=== PATIENT | male | born 1955 | race Caucasian/White ===

== ENCOUNTER 2020-04-07 11:15 | Inpatient (IN) | payer MEDICAID ==
[~2020-04-07] VITALS: Ht 175.3 cm; Wt 130.3 kg
--- NOTE | 2020-04-07 12:10 | NUR ---
PATIENT TO ROOM, RN MADE AWARE
[2020-04-07] MEDS ORDERED: SODIUM CHLORIDE FLUSH 10ML SYR IVF ONE (13:00)
[2020-04-07] MEDS ORDERED: MECLIZINE CHEWABLE 25 MG TAB PO ONE (13:00)
--- NOTE | 2020-04-07 13:07 | NUR ---
PT WITH KNEE REPLACEMENT 03/05. WOKE THIS AM AND FELT THOUGH THE ROOM WAS SPINNING, HE HAD GLF. -LOC, DID NOT HIT HEAD OR SUSTAIN INJURY. PT DENIES CP, SOB.
[2020-04-07 13:16] LABS: BASOPHILS # (AUTO) 0.04 x10^3/uL (0-0.1); BASOPHILS % (AUTO) 1 % (0-1); EOSINOPHILS # (AUTO) 0.51 x10^3/uL (0-0.4); EOSINOPHILS % (AUTO) 8 % (1-7); LYMPHOCYTES # (AUTO) 2.12 x10^3/uL (1-3.4); LYMPHOCYTES % (AUTO) 31 % (22-44); MD NO; MEAN CORPUSCULAR HEMOGLOBIN 31.1 pg (27.5-34.5); MEAN CORPUSCULAR HGB CONC 32.4 g/dL (33.2-36.2); MEAN PLATELET VOLUME 6.4 fL (7.4-10.4); MONOCYTES # (AUTO) 0.42 x10^3/uL (0.2-0.8); MONOCYTES % (AUTO) 6 % (2-9); NEUTROPHILS # (AUTO) 3.71 x10^3/uL (1.8-6.8); NEUTROPHILS % (AUTO) 55 % (42-75); PLATELET COUNT 242 x10^3/uL (130-400); RED BLOOD COUNT 3.98 x10^6/uL (4.38-5.82); RED CELL DISTRIBUTION WIDTH 14.1 % (9.4-14.8)
[2020-04-07] MEDS ORDERED: MECLIZINE CHEWABLE 25 MG TAB ONE (13:17)
[2020-04-07 13:31] LABS: TROPONIN I < 0.015 ng/mL (0.000-0.045)
[2020-04-07] MEDS ORDERED: DIAZEPAM 5 MG/ML, 2ML IV ONE (14:30)
[2020-04-07] MEDS ORDERED: DIAZEPAM 5 MG/ML, 2ML ONE (14:39)
[2020-04-07 14:43] LABS: ANION GAP 7 mmol/L (5-15); CALCIUM 8.5 mg/dL (8.5-10.1); CHLORIDE 112 mmol/L (98-107)
--- NOTE | 2020-04-07 14:45 | NUR ---
PIV ESTABLISHED, PT MEDICATED PER MAR. VSS, NO OTHER NEEDS AT THIS TIME
--- NOTE | 2020-04-07 16:24 | NUR ---
PT AMBULATED TO WITH IN [place], PT DID REPORT STILL FEELING DIZZY DESPITE MED ADMINISTRATION. ERP MADE AWARE, VSS
[2020-04-07] MEDS ORDERED: SODIUM CHLORIDE FLUSH 10ML SYR IVF PRN (17:00)
--- NOTE | 2020-04-07 17:30 | NUR ---
PT PROVIDED WITH MEAL TRAY UPON REQUEST, VSS, NO OTHER NEEDS AT THIS TIME
[2020-04-07] MEDS ORDERED: TAMS-11 PO (19:07)
[2020-04-07] MEDS ORDERED: ATOR10TA9 PO (19:07)
--- NOTE | 2020-04-07 19:07 | NUR ---
Report received from MARILEE Garcia. This RN to assume care. Bed received for patient. Report given to MARILEE Martinez. Patient to be transferred to room 338.
[2020-04-07 19:25] VITALS: BP 155/85
[2020-04-07] MEDS ORDERED: ONDANSETRON 2MG/ML, 2ML IVPush PRN (19:30)
[2020-04-07] MEDS ORDERED: ONDANSETRON ODT 4 MG PO PRN (19:30)
[2020-04-07] MEDS ORDERED: LORazepam 1MG TABLET PO PRN (19:30)
[2020-04-07] MEDS ORDERED: ACETAMINOPHEN 325 MG TABLET PO PRN (19:30)
[2020-04-07] MEDS ORDERED: LORazepam 2 MG/ML, 1ML IVPush PRN (19:30)
[2020-04-07] MEDS ORDERED: NAPR-850 PO (19:31)
[2020-04-07] MEDS: MECLIZINE 25 MG TABLET PO SCH (20:59)
[2020-04-07] MEDS: ATORVASTATIN 20 MG TABLET PO SCH (20:59)
[2020-04-07] MEDS: ENOXAPARIN 40 MG/0.4 ML SQ SCH (21:01)
[2020-04-07] MEDS: LACTATED RINGERS 1,000 ML IV SCH (21:02)
[2020-04-08] VITALS (8 sets, daily range): BP systolic 130–165; BP diastolic 72–91
[2020-04-08 02:37] LABS: MICROSCOPIC NOT IND
[2020-04-08 06:01] LABS: BASOPHILS # (AUTO) 0.04 x10^3/uL (0-0.1); BASOPHILS % (AUTO) 1 % (0-1); EOSINOPHILS # (AUTO) 0.49 x10^3/uL (0-0.4); EOSINOPHILS % (AUTO) 9 % (1-7); LYMPHOCYTES # (AUTO) 2.22 x10^3/uL (1-3.4); LYMPHOCYTES % (AUTO) 38 % (22-44); MD NO; MEAN CORPUSCULAR HEMOGLOBIN 31.2 pg (27.5-34.5); MEAN CORPUSCULAR HGB CONC 32.2 g/dL (33.2-36.2); MEAN PLATELET VOLUME 6.9 fL (7.4-10.4); MONOCYTES # (AUTO) 0.44 x10^3/uL (0.2-0.8); MONOCYTES % (AUTO) 8 % (2-9); NEUTROPHILS # (AUTO) 2.64 x10^3/uL (1.8-6.8); NEUTROPHILS % (AUTO) 45 % (42-75); PLATELET COUNT 238 x10^3/uL (130-400); RED BLOOD COUNT 3.79 x10^6/uL (4.38-5.82); RED CELL DISTRIBUTION WIDTH 14.5 % (9.4-14.8)
[2020-04-08 06:15] LABS: ALANINE AMINOTRANSFERASE 27 U/L (12-78); ANION GAP 6 mmol/L (5-15); CALCIUM 8.9 mg/dL (8.5-10.1); CHLORIDE 111 mmol/L (98-107); CREATININE 0.74 mg/dL (0.7-1.3)
[2020-04-08 06:20] LABS: ALKALINE PHOSPHATASE 79 U/L (45-117); BILIRUBIN,TOTAL 0.9 mg/dL (0.2-1.0); CHOL/HDL RATIO 2.8; CHOLESTEROL, TOTAL 102 mg/dL (140-239); HDL CHOL % 36 % (26-37); HDL CHOLESTEROL (DIRECT) 37 mg/dL (40-60); LDL CHOLESTEROL,CALCULATED 42 mg/dL (54-169); LDL/HDL RATIO 1.1 (0.5-3.0); TRIGLYCERIDES 116 mg/dL (50-200); VLDL CHOLESTEROL 23 mg/dL (0-25)
[2020-04-08] MEDS ORDERED: GADOTERATE 10 MMOL/20 ML VIAL ONE (08:43)
[2020-04-08] MEDS: LACTATED RINGERS 1,000 ML IV SCH ×2 (08:50→21:12)
[2020-04-08] MEDS: ENOXAPARIN 40 MG/0.4 ML SQ SCH (09:00)
[2020-04-08] MEDS: TAMSULOSIN 0.4 MG CAP.ER.24H PO SCH (09:25)
[2020-04-08] MEDS: MECLIZINE 25 MG TABLET PO SCH ×3 (09:25→21:11)
[2020-04-08] MEDS: SENNA/DOCUSATE TABLET PO SCH (09:25)
[2020-04-08] MEDS: ATORVASTATIN 20 MG TABLET PO SCH (21:11)
[2020-04-09 00:26] VITALS: BP 125/63
[2020-04-09 05:25] LABS: BASOPHILS # (AUTO) 0.04 x10^3/uL (0-0.1); BASOPHILS % (AUTO) 1 % (0-1); EOSINOPHILS # (AUTO) 0.47 x10^3/uL (0-0.4); EOSINOPHILS % (AUTO) 7 % (1-7); LYMPHOCYTES # (AUTO) 2.58 x10^3/uL (1-3.4); LYMPHOCYTES % (AUTO) 38 % (22-44); MD NO; MEAN CORPUSCULAR HEMOGLOBIN 30.8 pg (27.5-34.5); MEAN CORPUSCULAR HGB CONC 32.3 g/dL (33.2-36.2); MEAN PLATELET VOLUME 6.9 fL (7.4-10.4); MONOCYTES # (AUTO) 0.56 x10^3/uL (0.2-0.8); MONOCYTES % (AUTO) 8 % (2-9); NEUTROPHILS % (AUTO) 47 % (42-75); PLATELET COUNT 263 x10^3/uL (130-400); RED BLOOD COUNT 3.91 x10^6/uL (4.38-5.82); RED CELL DISTRIBUTION WIDTH 14.5 % (9.4-14.8)
[2020-04-09 05:27] LABS: CHLORIDE 111 mmol/L (98-107)
[2020-04-09 05:36] LABS: ANION GAP 5 mmol/L (5-15); C-REACTIVE PROTEIN, QUANT 0.36 mg/dL (0.02-0.49); CALCIUM 8.5 mg/dL (8.5-10.1); CREATININE 0.89 mg/dL (0.7-1.3)
[2020-04-09 06:25] LABS: HCT (SEDRATE) 37.3 % (39.2-51.8)
[2020-04-09 06:55] VITALS: BP 160/87
[2020-04-09] MEDS: ENOXAPARIN 40 MG/0.4 ML SQ SCH ×2 (09:00→09:41)
[2020-04-09] MEDS: TAMSULOSIN 0.4 MG CAP.ER.24H PO SCH (09:36)
[2020-04-09] MEDS: MECLIZINE 25 MG TABLET PO SCH ×2 (09:36→16:08)
[2020-04-09] MEDS: SENNA/DOCUSATE TABLET PO SCH (09:37)
[2020-04-09] MEDS: LACTATED RINGERS 1,000 ML IV SCH (11:26)
[2020-04-09 14:26] VITALS: BP 126/77
[2020-04-09] MEDS ORDERED: MECL-101 PO (15:49)
== END 2020-04-09 17:31 | disposition home or self-care (01) | DRG 149 ==
LOC: ED 12:54 → EDIP 16:38 → 3N 19:12
PROVIDERS: ADMIT Internal Medicine; ATTEND Internal Medicine
DX: H81.10 Benign paroxysmal vertigo, unspecified ear (principal); H83.2X9 Labyrinthine dysfunction, unspecified ear; E78.5 Hyperlipidemia, unspecified; F17.210 Nicotine dependence, cigarettes, uncomplicated; H55.00 Unspecified nystagmus; N40.0 Benign prostatic hyperplasia without lower urinary tract symptoms; W01.0XXA Fall on same level from slipping, tripping and stumbling without subsequent striking against object, initial encounter; Z96.652 Presence of left artificial knee joint
CPT/HCPCS: 36415; 70450; 70544; 70549; 70553; 71045; 80048; 80053; 80061; 81003; 83036; 83735; 83880; 84443; 84484; 85025; 85651; 86140; 93005; 93306; 96374; 99285; G0378; J1650; J3360; A9575; J2060; J7120